=== PATIENT | male | born 1945 | race Caucasian/White ===

== ENCOUNTER 2018-01-19 09:03 | Inpatient (IN) ==
--- NOTE | 2018-01-19 09:17 | Emergency Department Note ---
Disposition Clinical Impression: Abnormal EKG, Dyspnea on exertion Disposition: Admitted As Inpatient Condition: Good Referrals: Cleveland Sen DO [Family Provider] - Ashlee Norman [Primary Care Provider] - Forms: ED Satisfaction Letter, Work/School Release Abdominal Pain HPI - General Chief Complaint: ED Abdominal Pain Stated Complaint: L flank pain Time Seen by Provider: 01/19/18 09:07 Source: patient Mode of arrival: ambulatory Limitations: no limitations Nursing Notes Reviewed: Yes Vital Signs Reviewed: Yes - History of Present Illness HPI Narrative: Patient presents today for evaluation of left-sided flank pain. Patient describes pain in the lower back. Describes pain as a 2 out of 10 and sharp. Similar to previous kidney stones. Has not noticed any blood in his urine. States he was diagnosed throughout his life but has not had any recent workup including scans the last 3 years. Overall we have limited information our system about him. He states that he has high blood pressure as well as mildly enlarged prostate. Patient does take Synthroid. No other significant medical history. Patient surgical history includes appendectomy. Hernia repair. The patient's symptoms left flank pain started several weeks ago and was prescribed an unknown medication to help with it. Patient is currently out of this medication. He has also had swelling in his lower extremities with dyspnea on exertion. Overall patient's symptoms of her mild. His pitting edema is +1 up to the calf. No previous history of CHF. He is on amlodipine daily. Pain Scale: 2 - Related Data Previous Rx's Medication Instructions Recorded Benzocaine 20% [Orajel] 1 appl TP QID PRN #1 gel..gram. 01/03/18 Allergies Allergy/AdvReac Type Severity Reaction Status Date / Time No Known Allergies Allergy Verified 01/03/18 16:53 Review of Systems: CONSTITUTIONAL: No weight loss, fever, chills, weakness or fatigue. HEENT: Eyes: No visual changes. Ears, Nose, Throat: No hearing loss, difficulty talking or unable to swallow. SKIN: No rash or itching. CARDIOVASCULAR: Swelling in the lower extremities. No chest pain, chest pressure or chest discomfort. RESPIRATORY: No shortness of breath, cough or sputum. GASTROINTESTINAL: Flank pain with no associated nausea or vomiting GENITOURINARY: No burning on urination or hematuria. NEUROLOGICAL: No headache, dizziness, syncope, paralysis, ataxia, numbness or tingling in the extremities. No change in bowel or bladder control. MUSCULOSKELETAL: No muscle pain, back pain, joint pain or stiffness. Abdominal Pain PMH - Past Medical History Medical history: Reports: non-contributory Psychiatric history: Reports: no psych history - Social History Smoking status: Never smoker Alcohol use: Reports: none Physical Exam General: Well appearing, nontoxic, no acute distress Head: Normocephalic Atraumatic Eyes: PERRL, EOMI ENT: Airway patent, no stridor Neck: supple Chest: Lungs clear to auscultation bilateral Cardiac: Regular rate and rhythm, no murmurs, rubs or gallops Abdomen: soft, nontender, nondistended; no guarding, rebound, or tenderness to percussion Musculoskeletal: Calves symmetric with +1 pitting edema up to the knee. Skin: No rash, normal skin tone Neuro: Alert and Oriented to person, place, and time; No focal deficit - General General appearance: alert, in no apparent distress Course - Reevaluation(s) Reevaluation #1: Patient's initial workup shows stones in the left side which do appear to be chronic. His pain is completely resolved after a by mouth Vicodin. He seems to have chronic stones and feels rather well with these. He does have some chronic hydronephrosis as well as hydroureter. He has a 14 cm stone in his bladder. A culture has been sent but it does not appear to be infected at this time. The patient will need further urologic evaluation but this can likely be done as an outpatient. However, the patient was complaining of exertional dyspnea as well as increased swelling of his legs. Initial EKG shows biphasic T waves throughout the anterior leads concerning for possible Wellens syndrome. Troponin was negative. BNP is nonspecific. Chest x-ray shows trace effusions. Patient has not had any recent cardiac workup. Due to the area of lesion and concern for Wellens I did discuss this with cardiology. They evaluated the EKGs and no immediate intervention is needed. They will continue to follow the case. Repeat EKGs and repeat troponins to see if this lesion evolves. - Consultations Consultation #1: Discussed with cardiology Dr. Yip. No immediate intervention. Serial troponins and serial EKGs. Consultation #2: Discussed with hospitalist. Patient accepted for admission. Vital Signs Temperature 97.5 F L 01/19/18 09:04 Pulse Rate 69 01/19/18 09:04 Respiratory Rate 18 01/19/18 09:04 Blood Pressure 169/90 01/19/18 09:04 O2 Sat by Pulse Oximetry 96 01/19/18 09:04 Temperature 97.5 F L 01/19/18 09:08 Pulse Rate 62 01/19/18 11:50 Respiratory Rate 13 01/19/18 11:50 Blood Pressure 150/86 01/19/18 11:50 O2 Sat by Pulse Oximetry 92 01/19/18 11:50 Oxygen Delivery Oxygen Delivery Room Air Abdominal Pain - Medical Records Medical records reviewed: Yes I reviewed the patient's medical records. - Lab Data Lab results reviewed: Yes I reviewed the patient's lab results. Result diagrams: 01/19/18 11:19 01/19/18 09:56 Lab Results 01/19/18 01/19/18 01/19/18 Range/Units 09:23 09:56 09:56 WBC (4.3-11.1) K/mcL RBC (4.19-5.50) M/mcL Hgb (12.9-16.9) g/dL Hct (37.5-50.1) % MCV (83.0-100.0) fL MCH (28.0-33.3) pg MCHC (31.6-35.5) g/dL RDW (11.5-14.5) % Plt Count (140-400) K/mcL MPV (9.4-12.4) fL Immature Gran % (0-4) % Seg Neutrophils % % Lymphocytes % % Monocytes % % Eosinophils % % Basophils % % Neutrophils # (1.6-8.9) K/mcL Lymphocytes # (0.6-4.6) K/mcL Monocytes # (0.0-1.3) K/mcL Eosinophils # (0.0-0.6) K/mcL Basophils # (0.0-0.2) K/mcL Reactive Lymphocytes (Not Present) Sodium 142 (136-145) mEq/L Potassium 2.9 L (3.5-5.1) mEq/L Chloride 109 H (98-107) mEq/L Carbon Dioxide 25 (23-29) mEq/L BUN 8 (8-23) mg/dL Creatinine 0.83 (0.70-1.30) mg/dL Est GFR ( Amer) > 60 (> 60) Est GFR (Non-Af Amer) > 60 (> 60) BUN/Creatinine Ratio 10 (6-26) Glucose 112 H (70-105) mg/dL Calculated Osmolality 293 (280-300) Calcium 8.6 (8.6-10.3) mg/dL Total Bilirubin 0.8 (0.3-1.0) mg/dL Direct Bilirubin 0.2 (0.0-0.2) mg/dL Indirect Bilirubin 0.6 (0.0-1.2) mg/dL AST 21 (13-39) Units/L ALT 8 (7-52) Units/L Alkaline Phosphatase 69 (34-104) Units/L Troponin I 0.03 (< 0.04) ng/mL B-Natriuretic Peptide 346 H (Less than 100) pg/mL Serum Total Protein 6.5 (6.4-8.9) g/dL Albumin 3.3 L (3.5-5.7) g/dL Globulin 3.2 (2.4-3.5) g/dL Albumin/Globulin Ratio 1.0 L (1.1-2.2) Lipase 13 (11-82) Units/L Urine Color Yellow (Yellow) Urine Clarity Clear (Clear) Urine pH 7.0 (5.0-8.0) pH Units Ur Specific [place] 1.007 L (1.010-1.025) Urine Protein Negative (Neg-Trace) mg/dL Urine Glucose (UA) Normal (Normal) mg/dL Urine Ketones Negative (Negative) mg/dL Urine Blood Negative (Negative) Urine Nitrite Negative (Negative) Urine Bilirubin Negative (Negative) Urine Urobilinogen Normal (Normal) mg/dL Ur Leukocyte Esterase Trace H (Negative) Urine Microscopic RBC 0-3 (0-3) per hpf Urine Microscopic WBC 5-15 H (0-3) per hpf Ur Squamous Epith Cells Moderate H (None-Few) per lpf Urine Bacteria None Seen (None-Few) per hpf Hyaline Casts None Seen (None-Few) per lpf Ur Culture Indicated? YES A (NO) Specimen Rejected 01/19/18 01/19/18 Range/Units 09:56 11:19 WBC 5.0 (4.3-11.1) K/mcL RBC 4.66 (4.19-5.50) M/mcL Hgb 13.5 (12.9-16.9) g/dL Hct 39.3 (37.5-50.1) % MCV 84.3 (83.0-100.0) fL MCH 29.0 (28.0-33.3) pg MCHC 34.4 (31.6-35.5) g/dL RDW 13.1 (11.5-14.5) % Plt Count 156 (140-400) K/mcL MPV 11.4 (9.4-12.4) fL Immature Gran % 0.2 (0-4) % Seg Neutrophils % 54.6 % Lymphocytes % 27.0 % Monocytes % 11.0 % Eosinophils % 6.8 % Basophils % 0.4 % Neutrophils # 2.7 (1.6-8.9) K/mcL Lymphocytes # 1.4 (0.6-4.6) K/mcL Monocytes # 0.6 (0.0-1.3) K/mcL Eosinophils # 0.3 (0.0-0.6) K/mcL Basophils # 0.0 (0.0-0.2) K/mcL Reactive Lymphocytes Present A (Not Present) Sodium (136-145) mEq/L Potassium (3.5-5.1) mEq/L Chloride (98-107) mEq/L Carbon Dioxide (23-29) mEq/L BUN (8-23) mg/dL Creatinine (0.70-1.30) mg/dL Est GFR ( Amer) (> 60) Est GFR (Non-Af Amer) (> 60) BUN/Creatinine Ratio (6-26) Glucose (70-105) mg/dL Calculated Osmolality (280-300) Calcium (8.6-10.3) mg/dL Total Bilirubin (0.3-1.0) mg/dL Direct Bilirubin (0.0-0.2) mg/dL Indirect Bilirubin (0.0-1.2) mg/dL AST (13-39) Units/L ALT (7-52) Units/L Alkaline Phosphatase (34-104) Units/L Troponin I (< 0.04) ng/mL B-Natriuretic Peptide (Less than 100) pg/mL Serum Total Protein (6.4-8.9) g/dL Albumin (3.5-5.7) g/dL Globulin (2.4-3.5) g/dL Albumin/Globulin Ratio (1.1-2.2) Lipase (11-82) Units/L Urine Color (Yellow) Urine Clarity (Clear) Urine pH (5.0-8.0) pH Units Ur Specific [place] (1.010-1.025) Urine Protein (Neg-Trace) mg/dL Urine Glucose (UA) (Normal) mg/dL Urine Ketones (Negative) mg/dL Urine Blood (Negative) Urine Nitrite (Negative) Urine Bilirubin (Negative) Urine Urobilinogen (Normal) mg/dL Ur Leukocyte Esterase (Negative) Urine Microscopic RBC (0-3) per hpf Urine Microscopic WBC (0-3) per hpf Ur Squamous Epith Cells (None-Few) per lpf Urine Bacteria (None-Few) per hpf Hyaline Casts (None-Few) per lpf Ur Culture Indicated? (NO) Specimen Rejected Clotted - Radiology Data Radiology results reviewed: Yes I reviewed the patient's radiology results. - EKG Data EKG attestation: Yes I reviewed and interpreted this EKG. EKG results narrative: EKG shows sinus rhythm with ventricular rate of 67. CO interval 156. QRS 113. QTC 391. Patient has biphasic T waves throughout the anterior leads. Different from previous EKG of 04/21/2001. Repeat EKG shows improvement of biphasic T waves. Continues to be in V3 and V4 but no longer and V2. Sinus rhythm with a vent trichiura rate of 65.
[2018-01-19] MEDS ORDERED: *HR* HYDROcodone/Acet 5/325 mg TABLET PO ONE (09:28)
[2018-01-19 09:36] LABS: Bilirubin,Urine Negative (Negative); Blood,Urine Negative (Negative); Clarity,Urine Clear (Clear); Color,Urine Yellow (Yellow); Glucose,Urine (UA) Normal (Normal); Ketones,Urine Negative (Negative); Leukocyte Esterase,Urine Trace (Negative); Nitrite,Urine Negative (Negative); Protein,Urine Negative (Neg-Trace); Specific Gravity,Urine 1.007 (1.010-1.025); Urobilinogen,Urine Normal (Normal)
[2018-01-19 09:39] LABS: Bacteria,Urine None Seen per hpf (None-Few); Hyaline Casts,Urine None Seen per lpf (None-Few); RBC,Urine 0-3 per hpf (0-3); Squamous Epithelial Cell,Urine Moderate per lpf (None-Few)
[2018-01-19] MEDS ORDERED: Isovue-370 500 ML INFUS..BTL IV ONE (10:23)
[2018-01-19 10:31] LABS: Troponin I 0.03 ng/mL (< 0.04)
[2018-01-19 10:47] LABS: Alanine Aminotransferase 8 Units/L (7-52); Albumin 3.3 g/dL (3.5-5.7); Alkaline Phosphatase 69 Units/L (34-104); Aspartate Amino Transferase 21 Units/L (13-39); BUN/Creatinine Ratio 10 (6-26); Bilirubin,Direct 0.2 mg/dL (0.0-0.2); Bilirubin,Indirect 0.6 mg/dL (0.0-1.2); Bilirubin,Total 0.8 mg/dL (0.3-1.0); Blood Urea Nitrogen 8 mg/dL (8-23); Calcium 8.6 mg/dL (8.6-10.3); Carbon Dioxide 25 mEq/L (23-29); Chloride 109 mEq/L (98-107); Globulin 3.2 g/dL (2.4-3.5); Glucose 112 mg/dL (70-105); Lipase 13 Units/L (11-82); Osmolality,Calculated 293 (280-300); Potassium 2.9 mEq/L (3.5-5.1); Sodium 142 mEq/L (136-145); Total Protein 6.5 g/dL (6.4-8.9); eGFR For Non-African Americans > 60 (> 60)
[2018-01-19] MEDS ORDERED: 0.9 % Sodium Chloride 500 ML IVC ONE (11:37)
[2018-01-19 11:56] LABS: Basophils % 0.4 %; Eosinophils # 0.3 K/mcL (0.0-0.6); Eosinophils % 6.8 %; Hematocrit 39.3 % (37.5-50.1); Hemoglobin 13.5 g/dL (12.9-16.9); Immature Granulocytes % 0.2 % (0-4); Lymphocytes # 1.4 K/mcL (0.6-4.6); Mean Corpuscular HGB Conc 34.4 g/dL (31.6-35.5); Mean Corpuscular Volume 84.3 fL (83.0-100.0); Mean Platelet Volume 11.4 fL (9.4-12.4); Monocytes # 0.6 K/mcL (0.0-1.3); Neutrophils # 2.7 K/mcL (1.6-8.9); Platelet Count 156 K/mcL (140-400); Red Blood Count 4.66 M/mcL (4.19-5.50); Red Cell Distribution Width 13.1 % (11.5-14.5); Segmented Neutrophils % 54.6 %
[2018-01-19 11:57] LABS: Reactive Lymphocytes Present (Not Present)
[2018-01-19] MEDS ORDERED: Naloxone 0.4 MG/ML INJ IVP PRN (13:16)
--- NOTE | 2018-01-19 13:21 | Internal Med History&Physical ---
Date of Encounter: 01/19/18 Time of Encounter: 13:19 Internal Medicine - H&P: HPI Chief complaint: Exertional shortness of breath Admitted From: Home History of present illness: Mr. Michele is a 72 year old male who presented to the ER today with 2 complaints #1 was left-sided flank pain and #2 was dyspnea on exertion The left-sided flank pain is graded as 3/10 in severity and he knows he has kidney stones and this is most likely the stone associated pain. Described as dull ache and does not have any radiation. He has not had any dysuria or hematuria. The exertional shortness of breath is what has been going on for the last couple of weeks and has gradually gotten worse. [place] however she has noticed that his legs are started getting swelling for the last few weeks and now has been feeling short of breath on exertion. He denies any karo overt chest pain and denies any fevers or chills. He denies any sick contacts but does get bitten by a lot of bugs on his lower extremities. He denies any nausea or vomiting. No COPD history in the past. He does have a surgical history that includes appendectomy and hernia repair and he does have a history of hypothyroidism for which she takes Synthroid. He does take amlodipine for hypertension on a daily basis Past Med Surg Social Fam HX - Past Medical History Medical history: non-contributory Additional medical history: BPH Psychiatric history: no psych history - Social History Smoking Status: Never smoker Smokeless Tobacco Status: No Alcohol use: none - Additional Family History Additional family history: No significant history of early cardiovascular disease in his father or mother's side Internal Medicine - H&P: Meds Benzocaine 20% [Orajel] 1 appl TP QID PRN #1 gel..gram. 01/03/18 [Rx] 3 Allergy/AdvReac Type Severity Reaction Status Date / Time No Known Allergies Allergy Verified 01/19/18 13:09 All Systems PM: A 10-system review of systems was performed and is negative for pertinent findings except as documented above in the HPI. - Constitutional Vitals: Temp Pulse Resp BP Pulse Ox 97.5 F L 67 18 150/86 93 01/19/18 09:08 01/19/18 13:16 01/19/18 13:16 01/19/18 13:16 01/19/18 13:16 Exam: GENERAL: Alert, moderate distress, cooperative EYES: PERRLA, EOMI EARS: External ears normal, canals clear OROPHARYNX: Lips, mucosa, and tongue normal. Teeth and gums normal. Oropharynx normal. NECK: No jugulovenous distention, No carotid bruits, Carotid pulse normal contour, Supple LUNGS: Faint crackles heard at bilateral lung bases, good air excursion and able to complete sentences. CARDIAC: Normal S1 and S2; no rubs, murmurs, or gallops ABDOMEN: Abdomen soft, non-tender, BS normal, No masses or organomegaly EXTREMITIES: Extremities bilateral 1+ pitting edema with multiple areas of raised wheals-corresponding to insect bites NEURO: Gait normal. Reflexes normal and symmetric. Sensation grossly intact, Cranial nerves II-XII intact PULSES: 2+ radial, 2+ carotid Rest of the exam is non contributory Internal Med - H&P Results - Labs CBC & Chem 7: 01/19/18 11:19 01/19/18 09:56 - EKG Data Prior EKG available for review: yes Interpretation IM: other EKG comments: 01/19/18 13:23 EKG reviewed by me and shows nonspecific biphasic T-wave changes on V2 3 and 4. The repeat EKG done in the ER shows improvement but still persistence of these T-wave changes. - Assessment and plan (1) Dyspnea on exertion Current Visit: Yes Status: Acute Assessment and plan: Patient has been having dyspnea on exertion for the last 2 weeks which is progressively getting worse. He does have 1+ pitting edema in bilateral lower extremities and his EKG does have some T-wave changes in the lateral leads. His initial set of troponin is negative. I will place him on telemetry monitoring and put him on observation floor. He will undergo serial cardiac enzymes and telemetry monitoring on the floor. We will consult cardiology in fact had already been spoken to in the ER. Given his dyspnea on exertion and bilateral lower extremity edema-I will try and get a 2-D echo and further treatment based on those reports. He is not hypoxic although does have some trace effusions on his chest x-ray. We will monitor for his strict I's and O's (2) DVT prophylaxis Current Visit: Yes Status: Acute Assessment and plan: Subcutaneous heparin every 12hours - Time Spent With Patient Total time spent is greater than 50% in coordination of care (as documented) at patient's floor/unit and/or counseling patient: Greater than 35 minutes
[2018-01-19] MEDS: amLODIPine 5 MG TABLET PO SCH (15:55)
[2018-01-19] MEDS: Aspirin Enteric Coated 81 MG Tablet PO SCH (15:55)
--- NOTE | 2018-01-19 17:30 | Electrocardiograph Report ---
[address] [place] [address] Test Date: 2018-01-19 Pat Name: Santo Michele Department: 103 Room: 3B33 Gender: M [employer]: : 1945 Requested By: [id number] Order Number: [id number] Reading MD: Reta De La Cruz Measurements Intervals [place] Rate: 67 P: 52 [place]: 156 QRS: 66 QRSD: 113 T: 74 QT: 376 QTc: 391 Interpretive Statements SINUS RHYTHM WITH OCCASIONAL VENTRICULAR PREMATURE COMPLEXES LEFT VENTRICULAR HYPERTROPHY AND ST-T CHANGE [VOLTAGE CRITERIA PLUS ST/T ABNORMALITY] PROBABLE LATERAL MYOCARDIAL INFARCTION [35 ms Q WAVE IN I/aVL/V5/V6], OF INDETERMINATE AGE Electronically Signed On 01-19-2018 17:28:32 EDT by Reta De La Cruz
[2018-01-19] MEDS: *HR* Heparin 5,000 UNIT/ML VIAL SQ SCH (18:19)
[2018-01-20 01:13] LABS: Immature Granulocytes % 0.4 % (0-4); Mean Platelet Volume 12.8 fL (9.4-12.4)
[2018-01-20 01:15] LABS: Basophils % 0.4 %; Eosinophils # 0.4 K/mcL (0.0-0.6); Eosinophils % 6.3 %; Hematocrit 34.7 % (37.5-50.1); Hemoglobin 11.8 g/dL (12.9-16.9); Mean Corpuscular Hemoglobin 28.3 pg (28.0-33.3); Mean Corpuscular Volume 83.2 fL (83.0-100.0); Monocytes # 0.7 K/mcL (0.0-1.3); Monocytes % 12.7 %; Neutrophils # 2.5 K/mcL (1.6-8.9); Red Blood Count 4.17 M/mcL (4.19-5.50); Red Cell Distribution Width 13.2 % (11.5-14.5); Segmented Neutrophils % 45.2 %
[2018-01-20 01:34] LABS: BUN/Creatinine Ratio 11 (6-26); Blood Urea Nitrogen 8 mg/dL (8-23); Calcium 8.3 mg/dL (8.6-10.3); Carbon Dioxide 23 mEq/L (23-29); Chloride 112 mEq/L (98-107); Glucose 92 mg/dL (70-105); Osmolality,Calculated 292 (280-300); Potassium 2.8 mEq/L (3.5-5.1); Sodium 142 mEq/L (136-145); eGFR For Non-African Americans > 60 (> 60)
[2018-01-20 04:08] LABS: Mean Platelet Volume 10.6 fL (9.4-12.4)
[2018-01-20] MEDS: *HR* Heparin 5,000 UNIT/ML VIAL SQ SCH ×2 (05:25→17:54)
[2018-01-20 05:32] LABS: Platelet Estimate Normal (Normal); Reactive Lymphocytes Present (Not Present)
[2018-01-20] MEDS: amLODIPine 5 MG TABLET PO SCH (08:56)
[2018-01-20] MEDS: Aspirin Enteric Coated 81 MG Tablet PO SCH (08:56)
[2018-01-20] MEDS ORDERED: Potassium Chloride 20 MEQ, Lidocaine 1% 2 ML in D5% in Water 250 ML IVPB ONE (10:46)
--- NOTE | 2018-01-20 11:11 | Cardiology Consult Note ---
Date of Encounter: 01/20/18 Time of Encounter: 11:08 Assessment and Plan (1) Abnormal EKG Current Visit: Yes Status: Acute Abnormal ECG upon presentation. Precordial leads demonstrate biphasic T waves of unclear significance. Changes are largely nonspecific, especially in the setting of normal troponins and no chest pain. Of note, potassium low upon admission and remains low. Recommend replacement of potassium, maintain magnesium greater than 2. Hopefully, ECG changes were normalized. Given complaints of exertional dyspnea and this ECG, will check echocardiogram. We will make further recommendations based upon the results of TTE and response to electrolyte correction. (2) Hypokalemia Current Visit: Yes Status: Acute See comments under abnormal ECG (3) Hydronephrosis Current Visit: Yes Status: Acute CT evidence of nephrolithiasis and hydronephrosis. Your internal medicine management. Consider urology evaluation. Qualifiers: Hydronephrosis type: unspecified Qualified Code(s): N13.30 - Unspecified hydronephrosis Discussion w patient/family: The assessment and plan as outlined above was discussed with the patient and/or family members who expressed understanding and agreement. All questions were answered. Thank you for involving us in the care of your patient. Please call with any questions. History of Present Illness Consult date: 01/20/18 Requesting physician: Ivette Morales Consult reason: abnormal ecg Chief complaint: flank pain History of present illness: Mr. Michele is a 72 year old male who originally presented to the hospital regarding flank pain. Patient reportedly has a history of nephrolithiasis. CT in the ER demonstrated numerous stones and evidence of bilateral hydronephrosis. During evaluation, decision made to obtain an ECG, which demonstrated sinus rhythm and biphasic T waves in the precordial leads. Patient denies any history of chest discomfort. He does describe exertional dyspnea, which is somewhat chronic. Patient states his last cardiac evaluation was several years ago including a heart catheterization. He has never needed intervention. Currently, he is resting comfortably. He denies chest pain. Of note, potassium 2.9 yesterday, 2.8 today. BNP 346, now 531. Chest x-ray demonstrate a minimal left basilar atelectasis or pneumonitis. Sequelae of granulomatous disease. Patient reports several bug bites of the lower extremities and mild edema. Past Med Surg Social Fam HX - Past Medical History Medical history: non-contributory Additional medical history: BPH Psychiatric history: no psych history - Past Surgical History Surgical History: appendectomy, herniorrhaphy Additional surgical history: Partial thyroidectomy - Social History Smoking Status: Never smoker Smokeless Tobacco Status: Yes Alcohol use: none Medications and Allergies Amlodipine Besylate 10 mg PO DAILY 01/19/18 [History] Cephalexin [Keflex] 500 mg PO QID 01/19/18 [History] Levothyroxine Sodium [Levoxyl] 100 mcg PO DAILY 01/19/18 [History] Propranolol HCl [Innopran Xl] 120 mg PO DAILY 01/19/18 [History] Terazosin [Hytrin] 1 mg PO HS 01/19/18 [History] 3 Allergy/AdvReac Type Severity Reaction Status Date / Time No Known Allergies Allergy Verified 01/19/18 13:26 All Systems Review: The remainder of the systems were reviewed and are negative - Cardiovascular Cardiovascular: as per HPI Physical Examination Vital Signs, Last 4 Hours Temp Pulse Resp BP Pulse Ox 01/20/18 07:42 97.8 F 64 16 135/80 93 General: Conversant, No Apparent Distress HEENT: Atraumatic, Normocephaly, Mucus Membranes Moist Neck: No JVD, Normal carotid pulses Cardiac: Reg Rate and Rhythm, Normal S1 and S2, Other (Very mild systolic murmur.) Lungs: Normal Breath Sounds, No Wheeze, Rales, Rhonchi Neuro: Alert and responsive, No focal deficits noted Abdomen: Soft, Non-Tender Skin: Other Musculoskeletal: Other (Several lesions or bug bites of the distal lower extreme ease. Mild edema noted.) Extremities: No Clubbing, No Cyanosis, Other (Mild edema.) Results 01/20/18 00:28 01/20/18 00:28 Lab Results 01/20/18 01/20/18 01/20/18 00:28 00:28 00:28 WBC 5.6 Hgb 11.8 L D Hct 34.7 L Plt Count TNP Sodium 142 Potassium 2.8 L Chloride 112 H Carbon Dioxide 23 BUN 8 Creatinine 0.76 Glucose 92 Calcium 8.3 L Troponin I 0.03 B-Natriuretic Peptide 01/20/18 00:28 WBC Hgb Hct Plt Count Sodium Potassium Chloride Carbon Dioxide BUN Creatinine Glucose Calcium Troponin I B-Natriuretic Peptide 531 H Consult Discharge Plan - Plan Referrals: Ashlee Norman [Primary Care Provider] - Cleveland Sen DO [Family Provider] -
[2018-01-20 11:25] LABS: Hematocrit 38.4 % (37.5-50.1)
[2018-01-20] MEDS: Furosemide 20 MG/2 ML VIAL IVP SCH (12:14)
--- NOTE | 2018-01-20 14:43 | Internal Med Progress Note ---
Hospitalist Progress Note - Encounter Date of Encounter: 01/20/18 Time of Encounter: 09:30 - Subjective Interval History: Pt. admitted w/ left-sided flank pain and dyspnea on exertion. Patient examined at bedside and states he is still experiencing mild dyspnea with exertion but left flank pain has resolved. Denies history of CHF or diuretic use. On exam, patient's bilateral LEs are edematous with 2+ pitting. Patient also has multiple bug bites on bilateral LEs which he states are from [place]. Echocardiogram is ordered due to patient having EKG changes on admission and cardiology was consulted. Patient denies any other concerns or problems at this time. - Exam Vitals: Temp Pulse Resp BP Pulse Ox 98.2 F 63 16 134/75 96 01/20/18 11:27 01/20/18 11:27 01/20/18 11:27 01/20/18 11:27 01/20/18 11:27 Exam: PHYSICAL EXAMINATION: GENERAL: Alert, no acute distress, cooperative EYES: PERRLA, EOMI EARS: External ears normal, canals clear OROPHARYNX: Lips, mucosa, and tongue normal. Teeth and gums normal. Oropharynx normal NECK: No jugulovenous distention, No carotid bruits, Carotid pulse normal contour, Supple LUNGS: Mild crackles on auscultation. Pt. reports some SOB w/exertion. Not dyspneic during conversation CARDIAC: Normal S1 and S2; no rubs, murmurs, or gallops ABDOMEN: Abdomen soft, non-tender, BS normal, No masses or organomegaly EXTREMITIES: Extremities bilateral 2+ pitting edema with multiple areas of raised wheals-corresponding to insect bites NEURO: Gait normal. Reflexes normal and symmetric. Sensation grossly intact, Cranial nerves II-XII intact PULSES: 2+ radial, 2+ carotid SKIN: Multiple healing scabs on bilateral LEs that pt. reports as insect bites - Assessment and Plan (1) Dyspnea on exertion Current Visit: Yes Status: Acute Assessment and Plan: Patient has been having dyspnea on exertion for the last 2 weeks which is progressively getting worse. 2+ pitting edema in bilateral lower extremities and his EKG does have some T-wave changes in the lateral leads. Troponins negative x3. Pt. seen by Dr. Yip of Cardiology who wants repeat EKG once electrolytes have returned to normal to assess for changes. Also recommends magnesium and albumin levels. I appreciate the consult and recommendations. Echocardiogram shows LVEF of 60-65% and normal LV chamber size, wall thickness, and function. Monitor for his strict I's and O's. Pt. denies hx of CHF, however BNP 531 on admission. 20 mg IVP lasix daily as discussed w/Dr. Yip. 1.5 L daily fluid restriction. (2) Acute left flank pain Current Visit: Yes Status: Acute Assessment and Plan: Patient admitted with acute left flank pain which is now resolved. However, CT of the abdomen/pelvis shows numerous stones in the left pelvicalyceal system with the largest measuring 3 cm and noted in the left renal pelvis. Bilateral hydronephrosis and bilateral hydroureter without evidence for an obstructing stone. A 14 mm stone seen at the base of the bladder. Given the numerous calcifications seen left kidney and the large left renal pelvic stone, this may have originated from the left kidney. Stable large bilateral renal cysts. Urology consulted and pt. discussed w/Dr. Cheema. I appreciate the consult and recommendations. (3) DVT prophylaxis Current Visit: Yes Status: Acute Assessment and Plan: Continue SQ heparin every 12 hours for DVT prophylaxis. - Time Spent with Patient Total time spent is greater than 50% in coordination of care (as documented) at patient's floor/unit and/or counseling patient: 25 - 35 minutes Plan of Care Discussed with: patient Internal Medicine: Result - Labs CBC & Chem 7: 01/20/18 10:59 01/20/18 00:28 Labs: Short CBC 01/20/18 01/20/18 Range/Units 00:28 10:59 WBC 5.6 (4.3-11.1) K/mcL Hgb 11.8 L D 13.0 (12.9-16.9) g/dL Hct 34.7 L 38.4 (37.5-50.1) % Plt Count TNP Neutrophils # 2.5 (1.6-8.9) K/mcL BMP 01/20/18 00:28 Sodium 142 Potassium 2.8 L Chloride 112 H Carbon Dioxide 23 BUN 8 Creatinine 0.76 Glucose 92 Calcium 8.3 L Cardiac Enzymes 01/20/18 Range/Units 00:28 Troponin I 0.03 (< 0.04) ng/mL Liver Function 01/20/18 Range/Units 03:32 Albumin 3.0 L (3.5-5.7) g/dL Consult Discharge Plan - Plan Referrals: Cleveland Sen DO [Family Provider] - Ashlee Norman [Primary Care Provider] -
[2018-01-20 17:13] LABS: Hematocrit 38.4 % (37.5-50.1); Hemoglobin 13.2 g/dL (12.9-16.9)
[2018-01-20 22:51] LABS: Hematocrit 40.9 % (37.5-50.1)
[2018-01-21 01:21] LABS: Basophils % 0.5 %; Eosinophils # 0.4 K/mcL (0.0-0.6); Eosinophils % 6.2 %; Hematocrit 37.9 % (37.5-50.1); Hemoglobin 12.7 g/dL (12.9-16.9); Immature Granulocytes % 0.5 % (0-4); Immature Platelets 28.5 % (1.1-6.1); Lymphocytes # 1.8 K/mcL (0.6-4.6); Lymphocytes % 26.5 %; Mean Corpuscular HGB Conc 33.5 g/dL (31.6-35.5); Mean Corpuscular Volume 83.5 fL (83.0-100.0); Monocytes # 0.8 K/mcL (0.0-1.3); Monocytes % 11.7 %; Neutrophils # 3.6 K/mcL (1.6-8.9); Red Blood Count 4.54 M/mcL (4.19-5.50); Red Cell Distribution Width 13.2 % (11.5-14.5); Segmented Neutrophils % 54.6 %
[2018-01-21 01:24] LABS: Alanine Aminotransferase 8 Units/L (7-52); Albumin 3.3 g/dL (3.5-5.7); Albumin/Globulin Ratio 1.1 (1.1-2.2); Alkaline Phosphatase 82 Units/L (34-104); Aspartate Amino Transferase 20 Units/L (13-39); BUN/Creatinine Ratio 10 (6-26); Bilirubin,Total 0.6 mg/dL (0.3-1.0); Blood Urea Nitrogen 10 mg/dL (8-23); Calcium 9.1 mg/dL (8.6-10.3); Carbon Dioxide 29 mEq/L (23-29); Chloride 108 mEq/L (98-107); Globulin 3.1 g/dL (2.4-3.5); Glucose 154 mg/dL (70-105); Osmolality,Calculated 298 (280-300); Potassium 3.3 mEq/L (3.5-5.1); Sodium 143 mEq/L (136-145); Total Protein 6.4 g/dL (6.4-8.9); eGFR For Non-African Americans > 60 (> 60)
[2018-01-21 02:37] LABS: Mean Platelet Volume 10.5 fL (9.4-12.4)
[2018-01-21] MEDS: *HR* Heparin 5,000 UNIT/ML VIAL SQ SCH (05:10)
[2018-01-21] MEDS: amLODIPine 5 MG TABLET PO SCH (08:25)
[2018-01-21] MEDS: Aspirin Enteric Coated 81 MG Tablet PO SCH (08:26)
[2018-01-21] MEDS: Furosemide 20 MG/2 ML VIAL IVP SCH (08:26)
--- NOTE | 2018-01-21 09:14 | Urology - Consult Note ---
Date of Encounter: 01/21/18 Time of Encounter: 09:12 - Assessment and Plan (1) Nephrolithiasis Current Visit: Yes Status: Acute Assessment and plan: 72-year-old man with a large burden of left-sided renal stones. He does not require stent placement at this time. He is not infected and his pain is adequately controlled. Eventually, he will require a left percutaneous nephrolithotomy. We will discuss further as an outpatient. (2) BPH loc w urin obs/LUTS Current Visit: Yes Status: Acute Assessment and plan: He has some enlargement of his prostate on CT scan and there may be some incomplete emptying. I will start tamsulosin to see if this will improve his voiding. All side effects are informed. (3) Bladder stone Current Visit: Yes Status: Acute Assessment and plan: We will be able to remove the bladder stone the time of his percutaneous nephrolithotomy. This is more evidence of incomplete emptying. (4) Incomplete bladder emptying Current Visit: Yes Status: Acute Assessment and plan: We will monitor for now. I will hold off on [place] catheter placement. (5) Renal cyst Current Visit: Yes Status: Acute Assessment and plan: He has multiple bilateral renal cysts. These all appear benign. We will continue to follow. Urology CN:HPI Consult date: 01/21/18 Reason for consult Urology: Other (left flank pain) History of present illness: 72-year-old man seen in evaluation for left flank pain. The pain was moderate to severe. He noted it in his left flank and it radiated to the groin. The pain never going on for a few days. The pain was sharp. He came to the emergency department and a CT scan was obtained. This showed a large burden of left-sided nephrolithiasis with a large stone at the left ureteropelvic junction. In addition he had a distended bladder and some concern for bilateral hydroureteronephrosis. His renal function has been normal. He does report some slowing of his stream. He has a known history of stones, but has not followed with urology. Past Med Surg Social Fam HX - Past Medical History Medical history: non-contributory Additional medical history: BPH Psychiatric history: no psych history - Past Surgical History Surgical History: appendectomy, herniorrhaphy Additional surgical history: Partial thyroidectomy - Social History Smoking Status: Never smoker Smokeless Tobacco Status: Yes Alcohol use: none - Family History Father Hx Family Genitourinary Disorders: Yes (kidney stones) Medications and Allergies Amlodipine Besylate 10 mg PO DAILY 01/19/18 [History] Cephalexin [Keflex] 500 mg PO QID 01/19/18 [History] Levothyroxine Sodium [Levoxyl] 100 mcg PO DAILY 01/19/18 [History] Propranolol HCl [Innopran Xl] 120 mg PO DAILY 01/19/18 [History] Terazosin [Hytrin] 1 mg PO HS 01/19/18 [History] 3 Allergy/AdvReac Type Severity Reaction Status Date / Time No Known Allergies Allergy Verified 01/19/18 13:26 Review of Systems - Constitutional no chills, no fever(s) - EENT Nose, mouth and throat: no dizziness - Cardiovascular no chest pain - Respiratory no dyspnea - Gastrointestinal no nausea, no vomiting - Genitourinary flank pain, no hematuria - Musculoskeletal no back pain - Integumentary no erythema, no rash - Neurological no weakness - Psychiatric no suicidal ideation - Hematologic/Lymphatic no easy bleeding - Allergic/Immunologic no wheezing Exam Initial Vital Signs Temp Pulse Resp BP Pulse Ox 97.5 F L 69 18 169/90 96 01/19/18 09:04 01/19/18 09:04 01/19/18 09:04 01/19/18 09:04 01/19/18 09:04 - General physical appearance Present: well developed, well nourished, no distress - Eyes Absent: icteric - ENT Present: normal nares - Neck Present: trachea midline - Respiratory Present: normal respiratory effort - Cardiovascular Cardiovascular exam IM: RRR - Abdomen Abdomen: Present: soft - Integumentary Present: no rash - Neurologic Present: normal coordination - Musculoskeletal Present: other (grossly mariela.) Urology Results - Labs 01/21/18 00:45 01/21/18 00:45 Abnormal lab results Hgb 12.7 g/dL (12.9-16.9) L 01/21/18 00:45 Reactive Lymphocytes Present (Not Present) A 01/20/18 00:28 Immature Plt Fraction 28.5 % (1.1-6.1) H 01/21/18 00:45 Potassium 3.3 mEq/L (3.5-5.1) L 01/21/18 00:45 Chloride 108 mEq/L (98-107) H 01/21/18 00:45 Glucose 154 mg/dL (70-105) H 01/21/18 00:45 B-Natriuretic Peptide 531 pg/mL (Less than 100) H 01/20/18 00:28 Albumin 3.3 g/dL (3.5-5.7) L 01/21/18 00:45 Ur Specific [place] 1.007 (1.010-1.025) L 01/19/18 09:23 Ur Leukocyte Esterase Trace (Negative) H 01/19/18 09:23 Urine Microscopic WBC 5-15 per hpf (0-3) H 01/19/18 09:23 Ur Squamous Epith Cells Moderate per lpf (None-Few) H 01/19/18 09:23 Ur Culture Indicated? YES (NO) A 01/19/18 09:23 Diabetes panel 01/20/18 01/21/18 Range/Units 03:32 00:45 Sodium 143 (136-145) mEq/L Potassium 3.3 L (3.5-5.1) mEq/L Chloride 108 H (98-107) mEq/L Carbon Dioxide 29 (23-29) mEq/L BUN 10 (8-23) mg/dL Creatinine 0.98 (0.70-1.30) mg/dL Glucose 154 H (70-105) mg/dL Calcium 9.1 (8.6-10.3) mg/dL AST 20 (13-39) Units/L ALT 8 (7-52) Units/L Alkaline Phosphatase 82 (34-104) Units/L Albumin 3.0 L 3.3 L (3.5-5.7) g/dL Calcium panel 01/20/18 01/21/18 Range/Units 03:32 00:45 Calcium 9.1 (8.6-10.3) mg/dL Albumin 3.0 L 3.3 L (3.5-5.7) g/dL Pituitary panel 01/21/18 Range/Units 00:45 Sodium 143 (136-145) mEq/L Potassium 3.3 L (3.5-5.1) mEq/L Chloride 108 H (98-107) mEq/L Carbon Dioxide 29 (23-29) mEq/L BUN 10 (8-23) mg/dL Creatinine 0.98 (0.70-1.30) mg/dL Glucose 154 H (70-105) mg/dL Calcium 9.1 (8.6-10.3) mg/dL Adrenal panel 01/20/18 01/21/18 Range/Units 03:32 00:45 Sodium 143 (136-145) mEq/L Potassium 3.3 L (3.5-5.1) mEq/L Chloride 108 H (98-107) mEq/L Carbon Dioxide 29 (23-29) mEq/L BUN 10 (8-23) mg/dL Creatinine 0.98 (0.70-1.30) mg/dL Glucose 154 H (70-105) mg/dL Calcium 9.1 (8.6-10.3) mg/dL Total Bilirubin 0.6 (0.3-1.0) mg/dL AST 20 (13-39) Units/L ALT 8 (7-52) Units/L Alkaline Phosphatase 82 (34-104) Units/L Albumin 3.0 L 3.3 L (3.5-5.7) g/dL All other labs normal. - Imaging CT scan - abdomen: report reviewed, image reviewed CT scan - pelvis: report reviewed, image reviewed Consult Discharge Plan - Plan Referrals: Cleveland Sen DO [Family Provider] - Ashlee Norman [Primary Care Provider] -
--- NOTE | 2018-01-21 09:43 | Cardiology Progress Note ---
Date of Encounter: 01/21/18 Time of Encounter: 09:41 Assessment and Plan (1) Abnormal EKG Current Visit: Yes Status: Acute Abnormal ECG upon presentation. Precordial leads demonstrate biphasic T waves of unclear significance. Changes are largely nonspecific, especially in the setting of normal troponins and no chest pain. Of note, K was 2.9 on admission, then 2.8, 3.3 today. Will replace K--ideally > 4.0. Repeat ECG this AM shows precordial abnormalities on admission are now improved s/p electrolyte replacement. Limited TTE EF 60-65% with normal wall motion. No further inpt cardiology testing is warranted. Cardiology signing off. Reconsult PRN. (2) Hydronephrosis Current Visit: Yes Status: Acute CT evidence of nephrolithiasis and hydronephrosis. Your internal medicine management. Urology evaluated pt as well. Qualifiers: Hydronephrosis type: unspecified Qualified Code(s): N13.30 - Unspecified hydronephrosis (3) Hypokalemia Current Visit: Yes Status: Acute See comments under abnormal ECG. Discussion w patient/family: The assessment and plan as outlined above was discussed with the patient and/or family members who expressed understanding and agreement. All questions were answered. Thank you for involving us in the care of your patient. Please call with any questions. I will discuss all the above with Dr. Yip and make changes as necessary. Subjective Principal diagnosis: Abnormal EKG Interval history: Pt denies chest pain. Reports he has baseline dyspnea, no worse than usual. TTE resulted--EF 60-65%, normal wall motion. K replaced---still hypokalemic 3.3, but repeat EKG this AM shows lateral ST changes have resolved. Objective Vital Signs, Last 4 Hours Temp Pulse Resp BP Pulse Ox 01/21/18 08:14 98.1 F 71 16 148/90 99 Vital Signs Temp Pulse Resp BP Pulse Ox 01/21/18 08:14 98.1 F 71 16 148/90 99 01/21/18 02:10 98.5 F 75 16 128/72 94 01/20/18 22:51 98.1 F 71 16 135/55 96 01/20/18 17:12 98.1 F 67 16 121/62 91 01/20/18 11:27 98.2 F 63 16 134/75 96 Intake and Output 01/20/18 01/21/18 01/21/18 23:59 07:59 15:59 Other: Weight 76.6 kg Patient Weight 01/21/18 23:59 Weight 76.6 kg General: Conversant, No Apparent Distress HEENT: Atraumatic, Normocephaly, Mucus Membranes Moist Neck: No JVD, Normal carotid pulses Cardiac: Reg Rate and Rhythm, Normal S1 and S2, No Murmur Lungs: Normal Breath Sounds, No Wheeze, Rales, Rhonchi Neuro: Alert and responsive, No focal deficits noted Abdomen: Soft, Non-Tender Skin: No rashes noted on visualized skin Musculoskeletal: No Chest Wall Tenderness Extremities: No Clubbing, No Cyanosis, No Edema, Normal Pulses Results 01/21/18 00:45 01/21/18 00:45 Lab Results 01/20/18 01/20/18 01/20/18 10:59 16:58 22:38 WBC Hgb 13.0 13.2 14.0 Hct 38.4 38.4 40.9 Plt Count Sodium Potassium Chloride Carbon Dioxide BUN Creatinine Glucose Calcium Magnesium Total Bilirubin AST ALT Alkaline Phosphatase 01/21/18 01/21/18 01/21/18 00:45 00:45 00:45 WBC 6.6 Hgb 12.7 L Hct 37.9 Plt Count TNP Sodium 143 Potassium 3.3 L Chloride 108 H Carbon Dioxide 29 BUN 10 Creatinine 0.98 Glucose 154 H Calcium 9.1 Magnesium 1.9 Total Bilirubin 0.6 AST 20 ALT 8 Alkaline Phosphatase 82 Short CBC 01/21/18 01/20/18 01/20/18 Range/Units 00:45 22:38 16:58 WBC 6.6 (4.3-11.1) K/mcL Hgb 12.7 L 14.0 13.2 (12.9-16.9) g/dL Hct 37.9 40.9 38.4 (37.5-50.1) % Plt Count TNP Neutrophils # 3.6 (1.6-8.9) K/mcL 01/20/18 Range/Units 10:59 WBC (4.3-11.1) K/mcL Hgb 13.0 (12.9-16.9) g/dL Hct 38.4 (37.5-50.1) % Plt Count Neutrophils # (1.6-8.9) K/mcL BMP 01/21/18 Range/Units 00:45 Sodium 143 (136-145) mEq/L Potassium 3.3 L (3.5-5.1) mEq/L Chloride 108 H (98-107) mEq/L Carbon Dioxide 29 (23-29) mEq/L BUN 10 (8-23) mg/dL Creatinine 0.98 (0.70-1.30) mg/dL Glucose 154 H (70-105) mg/dL Calcium 9.1 (8.6-10.3) mg/dL Liver Function 01/21/18 01/20/18 Range/Units 00:45 03:32 Total Bilirubin 0.6 (0.3-1.0) mg/dL AST 20 (13-39) Units/L ALT 8 (7-52) Units/L Alkaline Phosphatase 82 (34-104) Units/L Albumin 3.3 L 3.0 L (3.5-5.7) g/dL Impressions Echocardiogram Limited Views 01/19/18 13:31 Impressions: LVEF 60-65%. Normal LV chamber size, wall thickness and function. Left Ventricular Wall Motion: Rest Echo Findings All wall segments showed normal motion. Findings: Study Quality * Technically adequate exam. ECG Findings * Normal sinus rhythm. Left Ventricle * LVEF 60-65%. * Normal LV chamber size, wall thickness and function. Right Ventricle * Normal right ventricular structure and function. Left Atrium * Moderately dilated left atrium. Right Atrium * Mildly dilated right atrium. Aortic Valve * Trileaflet aortic valve. Aorta * Normally sized aortic root. Pericardium * There is a trivial pericardial effusion present. Active Medications Amlodipine Besylate (Norvasc) 10 mg PO DAILY [facility] PRN Reason: Protocol Stop: 07/21/18 13:46 Last Admin: 01/21/18 08:25 Dose: 10 mg Aspirin (Aspirin Ec) 81 mg PO DAILY CARRIE Stop: 07/21/18 13:46 Last Admin: 01/21/18 08:26 Dose: 81 mg Calcium Carbonate (Tums) 1,000 mg PO TID CARRIE PRN Reason: Protocol Stop: 07/22/18 15:01 Last Admin: 01/21/18 08:26 Dose: 1,000 mg Furosemide (Lasix) 20 mg IVP DAILY CARRIE Stop: 07/22/18 11:01 Last Admin: 01/21/18 08:26 Dose: 20 mg Heparin Sodium (Porcine) (Heparin) 5,000 unit SQ Q12HCO [facility] Stop: 07/21/18 18:01 Last Admin: 01/21/18 05:10 Dose: 5,000 unit Naloxone HCl (Narcan) 0.4 mg IVP Q2MIN PRN PRN Reason: SEE COMMENTS Stop: 07/21/18 13:17 Potassium Chloride (Potassium Chloride) 40 meq PO DAILY [facility] Stop: 07/22/18 11:01 Last Admin: 01/21/18 08:26 Dose: 40 meq Tamsulosin HCl (Flomax) 0.4 mg PO DAILY [facility] PRN Reason: Protocol Stop: 07/23/18 09:31 - Imaging and Cardiology Echo: report reviewed - EKG Interpretation EKG results cardiology: personally reviewed Consult Discharge Plan - Plan Referrals: Cleveland Sen DO [Family Provider] - Ashlee Norman [Primary Care Provider] -
[2018-01-21] MEDS ORDERED: *HR* HYDROcodone/Acet 7.5/325 mg TABLET PO PRN (09:59)
--- NOTE | 2018-01-21 10:44 | Discharge Summary ---
- NOTES TO OUTPATIENT PROVIDER Notes to Outpatient Provider: Patient to follow up with his PCP w/i one week of discharge. Patient is also to follow-up with Nephrology post-discharge as OP to discuss left percutaneous nephrolithotomy as well as f/u for being started on Tamulosin for BPH. Patient instructed to discuss addition of PO lasix w/PCP and Nephrology d/t intermittent bilateral pedal edema. Orders not resulted at time of discharge: Pending orders 01/21/18 09:21 EKG [ECG 12 lead ECG] [ECG] Routine Date of Encounter: 01/21/18 Time of Encounter: 10:42 - Discharge Diagnosis (1) Dyspnea on exertion Priority: Primary Status: Acute Assessment and Plan: Patient admitted w/dyspnea on exertion. Denies hx of CHF. Ordered echocardiogram shows LVEF of 60-65% and normal LV chamber size, wall thickness, and function. CXR negative for CHF. However, patient reports intermittent bilateral pedal edema which was present during this admission. Pt. given 20 mg IVP lasix daily which helped edema. Patient instructed to discuss w/PCP for possible addition of PO lasix to home medications to help control edema. Pt. to follow up w/Nephrology as OP for left percutaneous nephrolithotomy and BPH. Discussion regarding lasix use should include Nephrology as well as PCP. On exam today, pt. reports much improvement in SOB/dyspnea. Pt. instructed to return to ED if sx worsen or persist. (2) Acute left flank pain Priority: Primary Status: Acute Assessment and Plan: Patient admitted with acute left flank pain which is now resolved. However, CT of the abdomen/pelvis shows numerous stones in the left pelvicalyceal system with the largest measuring 3 cm and noted in the left renal pelvis. Bilateral hydronephrosis and bilateral hydroureter without evidence for an obstructing stone. A 14 mm stone seen at the base of the bladder. Given the numerous calcifications seen left kidney and the large left renal pelvic stone, this may have originated from the left kidney. Stable large bilateral renal cysts. Urology consulted and pt. discussed w/Dr. Cheema with recommendation for left percutaneous nephrolithotomy as outpatient. Dr. Cheema also recommended starting tamsulosin patient's BPH. Hospital course: Mr. Michele is a 72 year old male Discharge discussed with: patient - Time Spent with Patient Total time spent providing and/or coordinating discharge services: Less than 30 minutes Specific discharge activities: Follow up w/PCP and Nephrology within one week of discharge and discuss the possible addition of PO lasix to home medications d /t bilateral pedal edema w/both providers. If shortness of breath/dyspnea returns/worsens, return to ED. - Discharge Medications Home Medications: Amlodipine Besylate 10 mg PO DAILY 01/19/18 [History] Cephalexin [Keflex] 500 mg PO QID 01/19/18 [History] Levothyroxine Sodium [Levoxyl] 100 mcg PO DAILY 01/19/18 [History] Propranolol HCl [Innopran Xl] 120 mg PO DAILY 01/19/18 [History] Terazosin [Hytrin] 1 mg PO HS 01/19/18 [History] Allergies/Adverse Reactions: 3 Allergy/AdvReac Type Severity Reaction Status Date / Time No Known Allergies Allergy Verified 01/19/18 13:26 Date of admission: 01/19/18 21:30 Primary care physician: Ashlee Norman Consults: 01/20/18 12:21 Consult to Urology [CONS] Routine Consulting Provider: Urology [facility] Reason for Consult: Patient has hx of kidney stones. Admitted w/left flank pain. CT of the abdomen/pelvis shows numerous stones seen in the left pelvicalyceal system largest measuring 3 cm and is noted in the left renal pelvis. Bilateral hydronephrosis and bilateral hydroureter without evidence for an obstructing stone. A 14 mm stone seen at the base of the bladder. Given the numerous calcifications seen in the left kidney and a large left renal pelvic stone, this may originally from the left kidney. Stable large bilateral renal cysts. Call Completed: Yes Discharging clinician: Kenton Prado Anticipated date of discharge: 01/21/18 - Constitutional Vitals: Temp Pulse Resp BP Pulse Ox 98.1 F 71 16 148/90 99 01/21/18 08:14 01/21/18 08:14 01/21/18 08:14 01/21/18 08:14 01/21/18 08:14 General appearance: Present: cooperative, A&O X 3, pleasant, no acute distress, answers questions appropriately - Head Head exam: Present: atraumatic, normocephalic - Eye Eye exam: Present: PERRL, conjuntiva pink, sclera anicteric Pupils: Present: PERRL - ENT ENT exam: Present: normal exam - Neck Neck exam general surgery: Present: normal inspection, supple, trachea midline. Absent: lymphadenopathy - Respiratory Respiratory exam: Present: CTAB. Absent: accessory muscle use, rales, rhonchi, wheezes - Cardiovascular Cardiovascular exam: Present: RRR, +S1, +S2. Absent: diastolic murmur, gallop, rubs, systolic murmur - GI/Abdominal GI/Abdominal exam: Present: normal bowel sounds, soft, no peritoneal signs. Absent: distended, tenderness - Rectal Rectal exam: Present: deferred - Additional comments: exam deferred. - Extremities Exam Extremities exam: Present: pedal edema, warm, radial pulses palpable and symmetrical. Absent: calf tenderness, cyanotic - Back Exam Back exam: Present: normal inspection - Neurological Exam Neurological exam: Present: CN II-XII intact, oriented X3, no focal deficits. Absent: pronater drift, facial droop, speech deficit - Psychiatric Psychiatric exam: Present: normal affect, normal mood - Skin Skin exam: Present: dry, intact - Patient Status Disposition: Home, Self-Care Condition: Good Functional capacity at discharge: independent ambulation Overall status at discharge: patient is progressing back to baseline - Discharge Instructions Follow Up With: Cleveland Sen DO [Family Provider] - Ashlee Norman [Primary Care Provider] - - Diet and Activity Activity: increase activity as tolerated Diet: low fat, low cholesterol
[2018-01-21 11:39] VITALS: BP 127/77
--- NOTE | 2018-01-22 10:43 | Electrocardiograph Report ---
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
--- NOTE | 2018-01-22 16:17 | Electrocardiograph Report ---
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
== END 2018-01-21 14:14 | disposition home or self-care (01) | DRG 694 ==
LOC: 3BNU 09:03 → EMEROO 09:03 → 3BNU 13:52
PROVIDERS: ADMIT Internal Medicine; ATTEND Internal Medicine

== ENCOUNTER 2018-02-20 13:23 | Inpatient (IN) ==
[2018-02-20] MEDS ORDERED: Ondansetron 4 MG/2 ML VIAL IVP PRN (14:26)
[2018-02-20] MEDS ORDERED: OXYCODONE Oral CONC 10 MG/0.5 ML ORAL.SYG SL PRN ×2 (14:26)
[2018-02-20] MEDS ORDERED: *HR* Belladonna Alkaloids/Opium 30 MG RECTAL SUPPOSITORY RC PRN (14:26)
[2018-02-20] MEDS ORDERED: *HR* OxyCODONE Immed Rel 5 MG TABLET PO PRN (14:26)
[2018-02-20] MEDS ORDERED: *HR* HYDROcodone/Acet 5/325 mg TABLET PO PRN (14:26)
[2018-02-20] MEDS ORDERED: Naloxone 0.4 MG/ML INJ IVP PRN (14:26)
[2018-02-20] MEDS ORDERED: Acetaminophen 325 MG TABLET PO PRN (14:26)
--- NOTE | 2018-02-20 14:36 | Urology History & Physical ---
<Bárbara Medina N - Last Filed: 02/20/18 14:33> Date of Encounter: 02/20/18 Time of Encounter: 14:00 Assessment and Plan (1) Bladder stone Current Visit: Yes Status: Acute Patient is a 72 year old male who presents with a 14mm bladder stone. Patient has a known history of incomplete bladder emptying and has ultimately elected to proceed with extraction. Patient has been counseled on the risks and benefits of surgery, and he is prepared to undergo a cystolitholapaxy on with Dr. Cheema. (2) Nephrolithiasis Current Visit: Yes Status: Acute Patient is a 72 year old male who presents with a history of large right renal stones, largest measuring 3cm on CT scan. Patient ultimately has elected to proceed with a more definitive treatment. Patient was counseled on the risks and benefits of surgery, and he is prepared to undergo left percutaneous nephrolithotomy following left nephrostomy tube placement per Interventional Radiology with Dr. Cheema on 02/21/18. Patient will remain NPO aftermidnight. Orders reiterated to nursing staff verbally. History of Present Illness Chief complaint: left renal stone HPI: Mr. Michele is a 72 year old male who presents with a history of large left renal stones, largest 3cm, and bladder stones, 1.4cm. Patient currently denies flank pain, hematuria, dysuria, fever or chills. Patient has a history of incomplete bladder emptying and intermittent left flank pain. Patient is unsure of family history of renal stones. Patient has undergone CT abdomen and pelvis. Past Med Surg Social Fam HX - Past Medical History Medical history: hypertension, kidney stones Additional medical history: BPH Psychiatric history: no psych history - Past Surgical History Surgical History: appendectomy, herniorrhaphy Additional surgical history: Partial thyroidectomy - Social History Smoking Status: Never smoker Smokeless Tobacco Status: Yes Alcohol use: none Drug use: none Medications and Allergies Amlodipine Besylate 10 mg PO DAILY 01/19/18 [History] Cephalexin [Keflex] 500 mg PO QID 01/19/18 [History] Levothyroxine Sodium [Levoxyl] 100 mcg PO DAILY 01/19/18 [History] Propranolol HCl [Innopran Xl] 120 mg PO DAILY 01/19/18 [History] Terazosin [Hytrin] 1 mg PO HS 01/19/18 [History] Tamsulosin [Flomax] 0.4 mg PO DAILY #30 cap.er.24h 01/21/18 [Rx] 3 Allergy/AdvReac Type Severity Reaction Status Date / Time No Known Allergies Allergy Verified 01/19/18 13:26 Review of Systems - Constitutional no chills, no fever(s), no weakness - EENT Nose, mouth and throat: no dizziness, no headache(s) - Cardiovascular no chest pain, no dyspnea - Respiratory no cough, no dyspnea - Gastrointestinal no abdominal pain, no nausea, no vomiting - Genitourinary difficulty urinating, urinary hesitancy, no dysuria, no flank pain, no hematuria - Musculoskeletal no back pain, no muscle weakness - Integumentary no erythema, no lesions, no rash, no swelling - Neurological no confusion, no syncope - Psychiatric no anxiety, no confusion Exam Initial Vital Signs Temp Pulse Resp BP Pulse Ox 98.1 F 51 15 132/73 97 02/20/18 14:15 02/20/18 14:15 02/20/18 14:15 02/20/18 14:15 02/20/18 14:15 - General physical appearance Present: well developed, no distress, no pain - Eyes Present: PERRL, normal ocular movement - ENT Present: no hearing loss, no congestion - Neck Present: no masses, trachea midline - Respiratory Present: normal respiratory effort - Cardiovascular Cardiovascular exam IM: RRR - Abdomen Abdomen: Present: soft, non tender - Integumentary Present: no rash, no abnormal pigmentation - Neurologic Present: normal coordination. Absent: disoriented Urology Results - Labs All other labs normal. - Imaging CT scan - abdomen: report reviewed, image reviewed CT scan - pelvis: report reviewed, image reviewed <Tico Cheema - Last Filed: 02/20/18 17:53> Date of Encounter: 02/20/18 History of Present Illness HPI: Mr. Michele is a 72 year old male Exam Initial Vital Signs Temp Pulse Resp BP Pulse Ox 98.1 F 51 15 132/73 97 02/20/18 14:15 02/20/18 14:15 02/20/18 14:15 02/20/18 14:15 02/20/18 14:15 Urology Results - Labs 02/20/18 15:03 02/20/18 15:03 Abnormal lab results Immature Plt Fraction 30.4 % (1.1-6.1) H 02/20/18 15:03 Carbon Dioxide 31 mEq/L (23-29) H 02/20/18 15:03 Glucose 127 mg/dL (70-105) H 02/20/18 15:03 Diabetes panel 02/20/18 Range/Units 15:03 Sodium 140 (136-145) mEq/L Potassium 4.0 (3.5-5.1) mEq/L Chloride 106 (98-107) mEq/L Carbon Dioxide 31 H (23-29) mEq/L BUN 12 (8-23) mg/dL Creatinine 0.78 (0.70-1.30) mg/dL Glucose 127 H (70-105) mg/dL Calcium 9.8 (8.6-10.3) mg/dL Calcium panel 02/20/18 Range/Units 15:03 Calcium 9.8 (8.6-10.3) mg/dL Pituitary panel 02/20/18 Range/Units 15:03 Sodium 140 (136-145) mEq/L Potassium 4.0 (3.5-5.1) mEq/L Chloride 106 (98-107) mEq/L Carbon Dioxide 31 H (23-29) mEq/L BUN 12 (8-23) mg/dL Creatinine 0.78 (0.70-1.30) mg/dL Glucose 127 H (70-105) mg/dL Calcium 9.8 (8.6-10.3) mg/dL Adrenal panel 02/20/18 Range/Units 15:03 Sodium 140 (136-145) mEq/L Potassium 4.0 (3.5-5.1) mEq/L Chloride 106 (98-107) mEq/L Carbon Dioxide 31 H (23-29) mEq/L BUN 12 (8-23) mg/dL Creatinine 0.78 (0.70-1.30) mg/dL Glucose 127 H (70-105) mg/dL Calcium 9.8 (8.6-10.3) mg/dL All other labs normal. - Attending Attestation Patient seen and examined with the PA. He is a 72-year-old man with a large left renal stone as well as bladder stones. He has had occasional flank pain. He was admitted today for the large burden of stones and concern for abdominal pain. We reviewed his CT scan. We will proceed with a left percutaneous nephrolithotomy as well as cystolitholapaxy tomorrow. We will start antibiotic tonight. I answered all his questions. He is aware the risks of the procedure. He is willing to proceed.
[2018-02-20 15:22] LABS: Basophils % 0.6 %; Mean Corpuscular HGB Conc 33.4 g/dL (31.6-35.5)
[2018-02-20 15:24] LABS: Eosinophils # 0.4 K/mcL (0.0-0.6); Eosinophils % 6.4 %; Hematocrit 46.4 % (37.5-50.1); Hemoglobin 15.5 g/dL (12.9-16.9); Immature Granulocytes % 0.4 % (0-4); Immature Platelets 30.4 % (1.1-6.1); Lymphocytes # 1.7 K/mcL (0.6-4.6); Lymphocytes % 25.4 %; Mean Corpuscular Hemoglobin 29.2 pg (28.0-33.3); Mean Corpuscular Volume 87.5 fL (83.0-100.0); Mean Platelet Volume 11.7 fL (9.4-12.4); Monocytes # 0.6 K/mcL (0.0-1.3); Monocytes % 8.8 %; Neutrophils # 3.9 K/mcL (1.6-8.9); Red Cell Distribution Width 13.3 % (11.5-14.5); Segmented Neutrophils % 58.4 %
[2018-02-20 15:34] LABS: INR 1.1; Prothrombin Time 11.9 Seconds (9.4-12.1)
[2018-02-20 15:37] LABS: BUN/Creatinine Ratio 15 (6-26); Blood Urea Nitrogen 12 mg/dL (8-23); Calcium 9.8 mg/dL (8.6-10.3); Carbon Dioxide 31 mEq/L (23-29); Chloride 106 mEq/L (98-107); Glucose 127 mg/dL (70-105); Osmolality,Calculated 291 (280-300); Sodium 140 mEq/L (136-145); eGFR For Non-African Americans > 60 (> 60)
[2018-02-20 16:14] LABS: Mean Platelet Volume 9.6 fL (9.4-12.4)
[2018-02-20] MEDS: 0.9 % Sodium Chloride 1,000 ML IVC SCH ×2 (17:44→23:19)
[2018-02-20] MEDS ORDERED: cefTRIAXone 1,000 MG in Water for inj. (sterile) 20 ML 10 ML IVP SCH (19:00)
[2018-02-21] MEDS: 0.9 % Sodium Chloride 1,000 ML IVC SCH ×2 (01:57→10:44)
--- NOTE | 2018-02-21 08:11 | Urology Progress Note ---
Date of Encounter: 02/21/18 Time of Encounter: 07:55 - Assessment and Plan (1) Bladder stone Current Visit: Yes Status: Acute Assessment and plan: Patient is a 72 year old male who presents with 14mm bladder stone. Patient is prepared to undergo cystolitholapaxy later this afternoon with Dr. Cheema. (2) Nephrolithiasis Current Visit: Yes Status: Acute Assessment and plan: Patient is a 72 year old male who presents with a history of large left renal stones, largest 3cm. Patient is prepared to undergo left PCNL later today with Dr. Cheema. Progress Note Subjective: no new complaints Narrative: Patient seen and examined sitting upright in bed in no apparent distress. Patient awaiting IR nephrostomy tube placement. Patient is NPO. PCNL and Cystolitholapxy scheduled for later today. Patient states pain is well controlled, and he denies any new concerns. Objective Initial Vital Signs Temp Pulse Resp BP Pulse Ox 98.1 F 51 15 132/73 97 02/20/18 14:15 02/20/18 14:15 02/20/18 14:15 02/20/18 14:15 02/20/18 14:15 - General physical appearance Present: well developed, no distress, no pain - Respiratory Present: normal expansion, normal respiratory effort - Abdomen Present: soft, non tender - Integumentary Present: no rash, no abnormal pigmentation - Musculoskeletal Present: normal posture - Psychiatric Present: oriented to time, oriented to person, oriented to place, speech is normal, memory intact - Labs 02/20/18 15:03 02/20/18 15:03 Diabetes panel 02/20/18 Range/Units 15:03 Sodium 140 (136-145) mEq/L Potassium 4.0 (3.5-5.1) mEq/L Chloride 106 (98-107) mEq/L Carbon Dioxide 31 H (23-29) mEq/L BUN 12 (8-23) mg/dL Creatinine 0.78 (0.70-1.30) mg/dL Glucose 127 H (70-105) mg/dL Calcium 9.8 (8.6-10.3) mg/dL Calcium panel 02/20/18 Range/Units 15:03 Calcium 9.8 (8.6-10.3) mg/dL Pituitary panel 02/20/18 Range/Units 15:03 Sodium 140 (136-145) mEq/L Potassium 4.0 (3.5-5.1) mEq/L Chloride 106 (98-107) mEq/L Carbon Dioxide 31 H (23-29) mEq/L BUN 12 (8-23) mg/dL Creatinine 0.78 (0.70-1.30) mg/dL Glucose 127 H (70-105) mg/dL Calcium 9.8 (8.6-10.3) mg/dL Adrenal panel 02/20/18 Range/Units 15:03 Sodium 140 (136-145) mEq/L Potassium 4.0 (3.5-5.1) mEq/L Chloride 106 (98-107) mEq/L Carbon Dioxide 31 H (23-29) mEq/L BUN 12 (8-23) mg/dL Creatinine 0.78 (0.70-1.30) mg/dL Glucose 127 H (70-105) mg/dL Calcium 9.8 (8.6-10.3) mg/dL - VTE Documentation of Mechanical Device: Graduated compression elastic hosiery Consult Discharge Plan - Plan Referrals: Ashlee Norman [Primary Care Provider] - Cleveland Sen DO [Family Provider] -
[2018-02-21] MEDS ORDERED: amLODIPine 5 MG TABLET PO SCH (09:00)
[2018-02-21] MEDS ORDERED: Propranolol LA (24 HR) 60 MG CAP.SA.24H PO SCH (09:00)
[2018-02-21] MEDS ORDERED: 0.9 % Sodium Chloride 500 ML ONE ×2 (10:27→12:41)
--- NOTE | 2018-02-21 12:00 | Anesthesia Evaluation PreOp ---
Date of Encounter: 02/22/18 Time of Encounter: 09:00 - Past History Planned Operation: L perc. nephrolithotomy Cardiac History: HTN, Other (Patient admitted with flank pain and dyspnea on exertion. Patient has a very active lifestyle. He underwent cardiac work up which was entirely normal. 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: Denies Any Significant HX Other Medical History: Renal Anesthesia History: No Prior Anesthetic Complications, Past Anesthesia Alcohol Use: none Drug use: none Medications and Allergies Amlodipine Besylate 10 mg PO DAILY 01/19/18 [History] Levothyroxine Sodium [Levoxyl] 100 mcg PO DAILY 01/19/18 [History] Propranolol HCl [Innopran Xl] 120 mg PO DAILY 01/19/18 [History] Terazosin [Hytrin] 1 mg PO HS 01/19/18 [History] Tamsulosin [Flomax] 0.4 mg PO DAILY #30 cap.er.24h 01/21/18 [Rx] 3 Allergy/AdvReac Type Severity Reaction Status Date / Time No Known Allergies Allergy Verified 02/20/18 21:22 - Meds/Allergy Pre-op Review Medications Reviewed: Yes Allergies Reviewed: Yes Beta Blockers on Current Med List: Yes ([id number]) Anesthesia Results - Labs 02/22/18 06:33 02/22/18 06:33 - Imaging EKG: report reviewed (sinus rhythm, LVH) Anesthesia Exam Selected Entries 02/21/18 11:07 Temperature 98.1 F Pulse Rate 59 Respiratory Rate 17 Blood Pressure 142/76 O2 Sat by Pulse Oximetry 98 Weight: 81 kg. NPO (# of Hours): over 8 hours Anesthesia Assess/Plan ASA Score: 2 Modified [place] Scale for Level of Consciousness: Cooperative, oriented, and tranquil Anesthetic Plan: General Monitoring Plan: Standard Monitors Recovery Plan: PACU
[2018-02-21] MEDS ORDERED: *HR* Midazolam HCl 2 MG/2 ML VIAL IVP ONE (13:06)
[2018-02-21] MEDS ORDERED: *HR* FentaNYL (PF) 100 MCG/2 ML VIAL IVP ONE (13:06)
[2018-02-21] MEDS ORDERED: Ampicillin/Sulbactam 1,500 MG in 0.9 % Sodium Chloride Mini Bag 100 ML IVPB ONE (13:06)
[2018-02-21] MEDS ORDERED: *HR* Midazolam HCl 2 MG/2 ML VIAL ONE ×2 (13:16→17:48)
[2018-02-21] MEDS ORDERED: Isovue-300 50 ML VIAL IVP ONE (13:38)
--- NOTE | 2018-02-21 14:01 | IR Procedure Note ---
Date of procedure: 02/21/18 Consent Obtained: Written consent Timeout: Correct patient and procedure verified, Correct site verified, Time out performed, Skin prep completed Local anesthetic: Lidocaine 1% Indications: Left kidney stone Procedure Performed: Left nephroureteral catheter placement Was there an metallurgical laboratory assistant present: No Results/Findings: 5f left NU catheter placement Estimated blood loss (cc): 0 Complications: None; Tolerated procedure well Post Procedure Treatment Plan: to pre-op holding Specimen: none
[2018-02-21] MEDS ORDERED: Isovue-300 150 ML INFUS..BTL IV ONE (17:01)
--- NOTE | 2018-02-21 17:23 | Anesthesia Evaluation PreOp ---
Date of Encounter: 02/21/18 Time of Encounter: 17:21 - Past History Planned Operation: Left Percutaneous Nephrolithotomy Cardiac History: HTN, Arrhythmia, Other (Patient admitted with flank pain and dyspnea on exertion. Patient has a very active lifestyle. He underwent cardiac work up which was entirely normal. Patient did have hypokalemia which was corrected with IV fluids.) Pulmonary History: Denies Any Significant HX YARD CONDUCTOR History: Denies Any Significant HX Other Medical History: Renal (kidney stones), Thyroid Anesthesia History: No Prior Anesthetic Complications, Past Anesthesia Alcohol Use: none Drug use: none Medications and Allergies Amlodipine Besylate 10 mg PO DAILY 01/19/18 [History] Levothyroxine Sodium [Levoxyl] 100 mcg PO DAILY 01/19/18 [History] Propranolol HCl [Innopran Xl] 120 mg PO DAILY 01/19/18 [History] Terazosin [Hytrin] 1 mg PO HS 01/19/18 [History] Tamsulosin [Flomax] 0.4 mg PO DAILY #30 cap.er.24h 01/21/18 [Rx] 3 Allergy/AdvReac Type Severity Reaction Status Date / Time No Known Allergies Allergy Verified 02/20/18 21:22 - Meds/Allergy Pre-op Review Medications Reviewed: Yes Allergies Reviewed: Yes Beta Blockers on Current Med List: Yes If Beta Blockers taken, Date/Time (Last Dose taken): 02/21/2018 at 0827 Anesthesia Results - Labs 02/20/18 15:03 02/20/18 15:03 - Imaging EKG: report reviewed (02/09/2018 SINUS RHYTHM LEFT VENTRICULAR HYPERTROPHY AND ST -T CHANGE) Additional studies: 01/20/2018 Echo Impressions: LVEF 60-65%. Normal LV chamber size and function. Mild concentric left ventricular hypertrophy. Moderate left ventricular diastolic dysfunction. Mild systolic anterior motion of the mitral valve leaflets. No LVOT obstruction. Normal right ventricular structure and function. Mild aortic regurgitation. No evidence of pulmonary hypertension. 01/19/2018 Limited Echo Impressions: LVEF 60-65%. Normal LV chamber size, wall thickness and function. Anesthesia Exam Vital Signs/O2 Sat, Most Current Temp Pulse Resp BP Pulse Ox 97.6 F 70 16 98/56 95 02/21/18 16:01 02/21/18 16:01 02/21/18 16:01 02/21/18 16:01 02/21/18 16:01 Height: 5'7''/1.7m Weight: 179 lbs/81.31kg NPO (# of Hours): 8 Pain Scale: 0 Pain Scale Used: Numeric (1 - 10) - HEENT Pupil (Motor): EOMI Mallampati: II Teeth: Edentulous Oral Opening: Greater than 3 - YARD CONDUCTOR LOC: Oriented YARD CONDUCTOR Motor: Normal RUE, Normal LUE, Normal RLE, Normal LLE, Normal Face YARD CONDUCTOR Sensory: Normal: RUE, LUE, RLE, LLE, Face - Cardiac Rhythm: Regular Murmur: None - Pulmonary Breath Sounds: bilateral Clear Respiratory Effort: Symmetrical Anesthesia Assess/Plan ASA Score: 2 Modified [place] Scale for Level of Consciousness: Cooperative, oriented, and tranquil Anesthetic Plan: General Monitoring Plan: Standard Monitors Recovery Plan: PACU
[2018-02-21] MEDS ORDERED: *HR* Propofol 200 MG/20 ML VIAL IVP ONE (17:48)
[2018-02-21] MEDS ORDERED: Dexamethasone 4 MG/ML VIAL ONE ×2 (17:48→18:36)
[2018-02-21] MEDS ORDERED: *HR* FentaNYL (PF) 100 MCG/2 ML VIAL ONE (17:48)
[2018-02-21] MEDS ORDERED: Lidocaine -MPF 2% 2 ML VIAL ONE (17:48)
[2018-02-21] MEDS ORDERED: Ondansetron 4 MG/2 ML VIAL ONE ×2 (17:48→18:12)
[2018-02-21] MEDS ORDERED: *HR* Succinylcholine 200 MG/10 ML VIAL IVP ONE (17:48)
[2018-02-21] MEDS ORDERED: EPHEDrine 50 MG/ML VIAL ONE (18:03)
[2018-02-21] MEDS ORDERED: *HR* Meperidine 25 MG/ML SYRINGE IVP PRN (19:22)
[2018-02-21] MEDS ORDERED: *HR* Promethazine 25 MG/ML VIAL IVP PRN (19:22)
[2018-02-21] MEDS ORDERED: *HR* OxyCODONE Immed Rel 5 MG TABLET PO PRN ×2 (19:22→21:18)
[2018-02-21] MEDS ORDERED: MORPHINE SUL Oral CONC 10 MG/0.5 ML ORAL.SYG SL PRN (19:22)
[2018-02-21] MEDS ORDERED: Naloxone 0.4 MG/ML INJ IVP PRN ×2 (19:22→21:18)
[2018-02-21] MEDS ORDERED: Ondansetron 4 MG/2 ML VIAL IVP ONE (19:22)
[2018-02-21] MEDS ORDERED: Ringers Solution, Lactated 1,000 ML IVC SCH (19:30)
--- NOTE | 2018-02-21 20:36 | Operative Note ---
Date of procedure: 02/21/18 Pre-op diagnosis: Bladder stone, left renal stone Post-op diagnosis: same Procedure: Cystolitholapaxy. Left percutaneous nephrolithotomy greater than 2.5 cm.. Antegrade nephrostogram Left nephrostomy tube placement. Implants: Underwood catheter. 6-Spanish by 26 cm double-J stent. 20-Spanish nephrostomy tube. Complications: None Anesthesia: GETA Surgeon: Tico Cheema Was there an executive administrative assistant present: No Estimated blood loss (cc): 50 Specimen: left renal stone Condition: stable Disposition: PACU Procedure in Detail: Indications: Mr. Michele is a 72-year-old male who has a history of a large stone burden on the left side. In addition he has a bladder stone. He elected to undergo a cystolitholapaxy along with a left percutaneous nephrolithotomy. He is aware of the risks of the procedure including but not limited to bleeding, infection, injury to other structures, pneumothorax, hydrothorax, incomplete fragmentation , and the risk of anesthesia. Procedure: After informed consent was obtained Mr. Moralez was brought back to the operating room and placed in the supine position. A time out was performed. General anesthesia was administered and an endotracheal tube was placed. He was then placed in the dorsal lithotomy position. His genitalia were prepped and draped in a sterile fashion. The resectoscope was introduced into the bladder. The prostate showed trilobar hyperplasia. A stone was seen in the bladder. The left nephroureteral catheter was seen emanating from the left ureteral orifice. The laser bridge was inserted into the resectoscope. The stone was broken into small pieces and the stone fragments were irrigated out. The stone was approximately 1.4 cm. Once the fragments were removed the scope was removed. A Underwood catheter was in place. He was then placed in the prone position. All pressure points were well padded and he was secured to the table. Previously, interventional radiology had obtained access for us. A wire was placed down the access catheter using fluoroscopic guidance into the bladder. Catheter was removed. An incision was made by the wire. The 8 Spanish/10 Spanish dilator was then placed. An antegrade nephrostogram showed a large filling defect within the renal pelvis and lower pole calyx. I was able to get the 10 Spanish portion past the UPJ and a second Super Stiff wire was placed. The dilator was removed. I then balloon dilated the tract. The sheath was then placed over the balloon into the renal pelvis. The offset nephroscope was then placed. The large 3 cm stone in the renal pelvis was fragmented using the ultrasonic wand. The stone fragmented well and I was able to aspirate the debris through the Lithoclast. Multiple stones were seen in the lower pole calyx. These were extracted or removed with the lithoclast. There was another calyx within the agger polar region which was difficult to access with the offset scope. There were small stone fragments within that calyx. I was able to visualize it with the flexible cystoscope, but I was not able to get the offset scope in there. This was a difficult location to access. At this point I felt it best just to place a stent and potentially treat those stones at a later date ureteroscopically. A 6 Spanish x 26 cm stent antegrade. A good curl was seen in the bladder and in the renal pelvis. I then placed a 20 Spanish [place] tip catheter down the sheath. The balloon was inflated with 3 mL of contrast. It was well positioned within the renal pelvis. An antegrade nephrostogram showed good location. The sheath was cut over top of the Underwood catheter and the Underwood catheter was removed. Hemostasis was good. The safety wire was removed as well. Hemostasis appeared adequate. Dry sterile dressings were applied to his back. He was awakened from general anesthesia in good condition. All sponge, needle, and instrument counts were correct.
--- NOTE | 2018-02-21 21:05 | Anesthesia Evaluation Post Op ---
Date of Encounter: 02/21/18 Time of Encounter: 21:04 - Vital Signs Vital Signs: Vital Signs/O2 Sat, Most Current Temp Pulse Resp BP Pulse Ox 97.8 F 73 20 124/66 94 02/21/18 21:03 02/21/18 21:03 02/21/18 21:03 02/21/18 21:03 02/21/18 21:03 - Lungs Lungs: Clear Ascult./Percussion - Airway Airway: Non-obstructed - Cardiovascular Regular Rate - Mental Status Mental Status: Alert & Oriented, Answers Appropriately - Pain Pain Scale: 0 Pain Scale used: Numeric (1 - 10) - Nausea Vomiting Nausea Vomiting: Not Present - Hydration Hydration: NPO, Underwood catheter - Discharge PostOp Status: Transfer Patient to floor
[2018-02-21] MEDS ORDERED: *HR* Belladonna Alkaloids/Opium 30 MG RECTAL SUPPOSITORY RC PRN (21:18)
[2018-02-21] MEDS ORDERED: *HR* HYDROcodone/Acet 5/325 mg TABLET PO PRN (21:18)
[2018-02-21] MEDS ORDERED: OXYCODONE Oral CONC 10 MG/0.5 ML ORAL.SYG SL PRN ×2 (21:18)
[2018-02-21] MEDS ORDERED: Acetaminophen 325 MG TABLET PO PRN (21:18)
[2018-02-21] MEDS ORDERED: Ondansetron 4 MG/2 ML VIAL IVP PRN (21:18)
[2018-02-22] MEDS: 0.9 % Sodium Chloride 1,000 ML IVC SCH ×2 (01:13→05:39)
[2018-02-22 07:34] LABS: BUN/Creatinine Ratio 19 (6-26); Blood Urea Nitrogen 19 mg/dL (8-23); Calcium 8.8 mg/dL (8.6-10.3); Carbon Dioxide 22 mEq/L (23-29); Chloride 107 mEq/L (98-107); Glucose 307 mg/dL (70-105); Osmolality,Calculated 294 (280-300); Potassium 3.6 mEq/L (3.5-5.1); Sodium 135 mEq/L (136-145); eGFR For Non-African Americans > 60 (> 60)
[2018-02-22 07:53] LABS: Hemoglobin 13.1 g/dL (12.9-16.9); Mean Corpuscular HGB Conc 33.6 g/dL (31.6-35.5); Mean Corpuscular Hemoglobin 29.3 pg (28.0-33.3); Mean Corpuscular Volume 87.2 fL (83.0-100.0); Red Blood Count 4.47 M/mcL (4.19-5.50); Red Cell Distribution Width 13.2 % (11.5-14.5)
[2018-02-22 08:25] LABS: Platelet Count 65 K/mcL (140-400)
[2018-02-22] MEDS ORDERED: amLODIPine 5 MG TABLET PO SCH (09:00)
[2018-02-22] MEDS ORDERED: Propranolol LA (24 HR) 60 MG CAP.SA.24H PO SCH (09:00)
[2018-02-22 09:01] LABS: Mean Platelet Volume 9.6 fL (9.4-12.4)
[2018-02-22 10:41] VITALS: BP 116/65
--- NOTE | 2018-02-22 11:58 | Discharge Summary ---
Orders not resulted at time of discharge: Pending orders 02/21/18 20:28 Surgical Pathology [PTH] Routine Date of Encounter: 02/22/18 Time of Encounter: 12:06 - Discharge Diagnosis (1) Bladder stone Priority: Primary Status: Acute (2) Nephrolithiasis Priority: Primary Status: Acute - Hospital Course Hospital course: Mr. Michele is a 72 year old male who presents with a large left renal stone and bladder stone. On 02/21/2018 the patient was taken to the operating room where he underwent cystolitholapaxy, left percutaneous nephrolithotomy greater than 2.5 cm, antegrade nephrostogram, left nephrostomy tube placement. Interventional radiology initially placed nephrostomy tube for access. The patient tolerated procedure well, and there were no operative complications. On postoperative day 1, nephrostomy tube and catheter were removed successfully. His postoperative course has been relatively unremarkable, and he was dismissed in satisfactory condition. The patient has been counseled on postoperative restrictions, activities, and follow-up. Time spent discussing smoking cessation with patient: 3 to 10 minutes - Time Spent with Patient Total time spent providing and/or coordinating discharge services: Less than 30 minutes Procedures and tests throughout hospitalization: Cystolitholapaxy. Left percutaneous nephrolithotomy greater than 2.5 cm.. Antegrade nephrostogram Left nephrostomy tube placement. Labs on day of discharge: Labs from last 24 hours 02/22/18 02/22/18 02/22/18 08:41 06:33 06:33 WBC 8.0 RBC 4.47 Hgb 13.1 D Hct 39.0 MCV 87.2 MCH 29.3 MCHC 33.6 RDW 13.2 Plt Count 65 L MPV 9.6 TNP Plt Count ,Citrate 171 Immature Plt Fraction TNP Sodium 135 L Potassium 3.6 Chloride 107 Carbon Dioxide 22 L BUN 19 Creatinine 0.98 Est GFR ( Amer) > 60 Est GFR (Non-Af Amer) > 60 BUN/Creatinine Ratio 19 Glucose 307 H Calculated Osmolality 294 Calcium 8.8 - Impressions ITS Impressions Nephrostomy 02/21/18 00:00 IMPRESSION: 1. Left staghorn calculus with successful placement of a nephroureteral catheter as discussed above. He is to undergo tract dilatation and nephrolithotomy. D/ / Jhonatan Burns MD / Jhonatan Burns MD Interpreting Provider: Jhonatan Burns MD Nephrostomy 02/21/18 07:00 IMPRESSION: 1. Left staghorn calculus with successful placement of a nephroureteral catheter as discussed above. He is to undergo tract dilatation and nephrolithotomy. D/ / Jhonatan Burns MD / Jhonatan Burns MD Interpreting Provider: Jhonatan Burns MD Percutaneous Antegrade Pyelogram 02/21/18 18:27 IMPRESSION: Intraprocedural fluoroscopic spot images as above. See separate procedure report for more information. D/ / Jose Eugene / Jose Eugene Interpreting Provider: Jose Eugene Chest X-Ray 02/21/18 20:39 IMPRESSION: Suspected left basilar airspace disease, atelectasis or pneumonia D/ / Altagracia Aburto Cha, MD / Altagracia Aburto Cha, MD Interpreting Provider: Altagracia Aburto Cha, MD - Discharge Medications Prescriptions: Docusate Sodium [Colace] 100 mg PO BID #60 capsule Oxycodone HCl/Acetaminophen [Percocet 5-325 mg Tablet] 1 each PO Q6H 4 Days #16 tablet Home Medications: Amlodipine Besylate 10 mg PO DAILY 01/19/18 [History] Levothyroxine Sodium [Levoxyl] 100 mcg PO DAILY 01/19/18 [History] Propranolol HCl [Innopran Xl] 120 mg PO DAILY 01/19/18 [History] Terazosin [Hytrin] 1 mg PO HS 01/19/18 [History] Tamsulosin [Flomax] 0.4 mg PO DAILY #30 cap.er.24h 01/21/18 [Rx] Docusate Sodium [Colace] 100 mg PO BID #60 capsule 02/22/18 [Rx] Oxycodone HCl/Acetaminophen [Percocet 5-325 mg Tablet] 1 each PO Q6H 4 Days #16 tablet 02/22/18 [Rx] Allergies/Adverse Reactions: 3 Allergy/AdvReac Type Severity Reaction Status Date / Time No Known Allergies Allergy Verified 02/20/18 21:22 Date of admission: 02/20/18 14:26 Primary care physician: Ashlee Norman Discharging clinician: Bárbara Medina Anticipated date of discharge: 02/22/18 Exam Initial Vital Signs Temp Pulse Resp BP Pulse Ox 98.1 F 51 15 132/73 97 02/20/18 14:15 02/20/18 14:15 02/20/18 14:15 02/20/18 14:15 02/20/18 14:15 - General physical appearance Present: well developed, no distress, no pain - Eyes Present: PERRL, normal ocular movement - ENT Present: normal nares, no hearing loss, no congestion - Neck Present: no masses, trachea midline - Respiratory Present: normal respiratory effort - Cardiovascular Cardiovascular exam IM: RRR - Abdomen Abdomen: Present: soft, non tender - Genitourinary normal penis with no external lesions, other (indwelling flores clear urine ) - Integumentary Present: no rash, no abnormal pigmentation - Neurologic Present: normal coordination. Absent: disoriented - Patient Status Disposition: Home, Self-Care Condition: Good Overall status at discharge: patient is progressing back to baseline - Discharge Instructions Follow Up With: Cleveland Sen DO [Family Provider] - Ashlee Norman [Primary Care Provider] - Tico Cheema MD [Partnered Physician] - Additional Instructions: Call if fever greater than 101.5 degrees. Call if drainage from left flank exceeds 7 days. Okay to shower. No tub baths or swimming. Okay to drive as long as you are no longer taking narcotic pain medicine. Okay to progress to normal activity. Can expect blood in the urine. Remove ostomy appliance in 3 days. Appointment in 1-2 weeks for cystoscopy and stent removal. - Diet and Activity Activity: increase activity as tolerated Diet: advance to your usual diet - VTE Documentation of Mechanical Device: Graduated compression elastic hosiery
[2018-02-22] MEDS ORDERED: cefTRIAXone 1,000 MG in Water for inj. (sterile) 20 ML 10 ML IVP SCH (18:00)
== END 2018-02-22 15:04 | disposition home or self-care (01) | DRG 661 ==
LOC: SAMDAY 13:23 → 2ANU 13:24
PROVIDERS: ADMIT Urology; ATTEND Urology